=== PATIENT | male | born 1980 | race Caucasian/White ===

== ENCOUNTER 2016-06-20 10:17 | Emergency (ER) | payer MEDICAID ==
[2016-06-20 10:21] VITALS: BP 133/78; PULSE 100; RESP 16; TEMP 97.5; O2SAT 96
--- NOTE | 2016-06-20 11:27 | EDPHY ---
H & P Stated Complaint: mouth pain swelling in gums Time Seen by Provider: 06/20/16 11:13 HPI/ROS: CHIEF COMPLAINT: My gums hurt HISTORY OF PRESENT ILLNESS: 36-year-old immunocompetent male self-described history of poor dentition, gingival disease, complaining of 1 week of gingival pain. No visible swelling. No bleeding. No fever or chills. No trismus no drooling. No odynophagia. No dysphagia. PHYSICAL EXAM (Prior to examination, patient consented to physical exam, hands were washed and my usual and customary physical exam procedures followed) 1) GENERAL: Well-developed, well-nourished, alert and oriented. Appears to be in no acute distress. 2) HEAD: Normocephalic 3) HEENT: Symmetrical faces. Nasolabial fold symmetrical. sclera anicteric. No trismus no drooling. Patient's upper and lower gingiva are tender with no evidence of apical abscess. Floor of mouth is soft. There is no fetid odor. There is no evidence of acute necrotizing ulcerative gingivitis. The submandibular and sub mental spaces are soft no induration. No erythema. 4) LUNGS: Breathing comfortably. - Personal History Current Tetanus/Diphtheria Vaccine: Unsure Current Tetanus Diphtheria and Acellular Pertussis (TDAP): Unsure - Medical/Surgical History Hx Asthma: No Hx Chronic Respiratory Disease: No Hx Diabetes: No Hx Cardiac Disease: No Hx Renal Disease: No Hx Cirrhosis: No Hx Alcoholism: No Hx HIV/AIDS: No Hx Splenectomy or Spleen Trauma: No Other PMH: foot surgery for tendons. - Social History Smoking Status: Current every day smoker Constitutional: Initial Vital Signs Temperature (C) 36.4 C 06/20/16 10:19 Heart Rate 100 06/20/16 10:19 Respiratory Rate 16 06/20/16 10:19 Blood Pressure 133/78 H 06/20/16 10:19 O2 Sat (%) 96 06/20/16 10:19 O2 Delivery Mode Room Air Allergies/Adverse Reactions: No Known Allergies Allergy (Verified 03/17/16 16:39) Home Medications: Medication Instructions Recorded Terbinafine HCl [LamISIL AT Cream 1 santos TP BID #1 crtube 03/17/16 (*)] Amoxicillin Trihydrate 500 mg PO Q8 7 Days 06/20/16 [Amoxicillin 500mg cap] oxyCODONE/APAP 5/325 [Percocet 1 tab PO Q6 #7 tab 06/20/16 5/325] Medical Decision Making ED Course/Re-evaluation: I this patient has no evidence of acute necrotizing ulcerative gingivitis, no evidence of deep space infection or Omid's angina. I do not think that imaging studies are indicated. Plan will be discharged with antibiotics, analgesia. Recommend close follow-up with dentist in the next 1-3 days. Usual and customary ENT precautions provided. Departure - Departure Disposition: Home, Routine, Self-Care Clinical Impression: Gingivitis Condition: Good Instructions: Gingivitis (ED) Additional Instructions: Return to the ER immediately if you cannot swallow, have drooling, fevers, neck stiffness, cannot open your jaw, or any other symptoms that concern you. Referrals: [facility] [Outside] - As per Instructions [facility] [Outside] - As per Instructions [facility] [Outside] - As per Instructions [facility] [Outside] - As per Instructions [facility] [Outside] - As per Instructions Prescriptions: Amoxicillin Trihydrate [Amoxicillin 500mg cap] 500 mg PO Q8 7 Days oxyCODONE/APAP 5/325 [Percocet 5/325] 1 tab PO Q6 #7 tab
== END 2016-06-20 11:57 | disposition home or self-care (01) ==
DX: K05.10 Chronic gingivitis, plaque induced (principal); F17.200 Nicotine dependence, unspecified, uncomplicated

== ENCOUNTER 2016-08-02 18:45 | Emergency (ER) | payer MEDICAID ==
[2016-08-02 18:51] VITALS: BP 121/73; PULSE 89; RESP 17; TEMP 97; O2SAT 98
--- NOTE | 2016-08-02 19:08 | EDPHY ---
HPI/HX/ROS/PE/MDM Narrative: CHIEF COMPLAINT: "I fell on my knee 5 week ago" HPI: This is a 36 y/o male, with several previous ED visits for mouth and foot pain, complaining of intermittent knee pain he attributes to a fall 5 weeks ago. He states he "slipped on some beer and fell at a constitution party" several weeks ago. He reports he has been able to walk and run without any pain, but has discomfort if he kneels on his right knee. He states his knee "feels like Jello underneath it and, like, a crater." He denies other injuries or complaints. No weakness or paresthesias. REVIEW OF SYSTEMS: Aside from elements discussed in the HPI, a comprehensive 10-point review of systems was reviewed and is negative. PMH: Gingival disease, foot surgery SOCIAL HISTORY: Daily smoker PHYSICAL EXAM: General:Patient is alert, in no acute distress. Skin: Normal color. No rash. Warm and dry. No laceration, abrasion, or ecchymosis. No areas of redness, warmth, or streaking over right knee. Extremities: Normal appearance. Full range of motion. Small dime-shaped area of tenderness over right patella. Neuro: Oriented x3. Normal motor function. Normal sensory function. ED Course: Study: Right knee x-ray Indication: Pain Results: Knee x-ray was obtained. The results of the study are negative for acute process. Radiologist report pending. I viewed the images myself on the PACS system. I see no evidence for infection or abscess on exam. MDM: This patient presents with a very small area of tenderness over the anterior aspect of his patella after a fall approximately 5 weeks ago. His exam does not seem consistent with abscess or foreign body. I suspect this is likely scar tissue although early abscess cannot be excluded. Given lack of erythema or swelling, I do not think empiric antibiotics are indicated. I think the best course will be to continue to observe and to return if needed. X-rays are normal. General Time Seen by Provider: 08/02/16 18:59 Initial Vital Signs: Initial Vital Signs Temperature (C) 36.1 C 08/02/16 18:49 Heart Rate 89 08/02/16 18:49 Respiratory Rate 17 08/02/16 18:49 Blood Pressure 121/73 H 08/02/16 18:49 O2 Sat (%) 98 08/02/16 18:49 O2 Delivery Mode Room Air Allergies/Adverse Reactions: No Known Allergies Allergy (Verified 03/17/16 16:39) Home Medications: Medication Instructions Recorded Terbinafine HCl [LamISIL AT Cream 1 santos TP BID #1 crtube 03/17/16 (*)] Departure - Departure Disposition: Home, Routine, Self-Care Clinical Impression: Knee pain, right Condition: Good Instructions: Knee Pain (ED) Additional Instructions: 1. Take Tylenol or ibuprofen as directed on the packaging as needed for pain for the next 3-4 days. 2. You can try heat or ice on sore areas. 3. Follow up with a primary care provider for symptoms not improved over the next week. Referrals: [facility],. [Clinic] - As per Instructions Report Scribed for: Dave Quinones Report Scribed by: Ariana Cano Date of Report: 08/02/16 Time of Report: 19:13 Physician Review and Approval Statement: Portions of this note were transcribed by an ED scribe. I personally performed the history, physical exam, and medical decision making; and confirm the accuracy of the information in the transcribed note.
== END 2016-08-02 19:45 | disposition home or self-care (01) ==
DX: M25.561 Pain in right knee (principal); F17.200 Nicotine dependence, unspecified, uncomplicated

== ENCOUNTER 2017-05-25 09:35 | Emergency (ER) | payer MEDICAID ==
[2017-05-25 09:44] VITALS: BP 121/76; PULSE 78; RESP 16; TEMP 98.1; O2SAT 95
--- NOTE | 2017-05-25 10:23 | EDPHY ---
H & P Stated Complaint: l lateral neck stiffness and pain post waking this morning/ denies inj/traum HPI/ROS: CHIEF COMPLAINT: Neck pain HISTORY OF PRESENT ILLNESS: The patient is a 37 y/o male complaining of left-sided neck pain onset this morning upon waking. He notes he was lifting several boxes yesterday at the [facility] in [place], but didn't have any obvious injury, trauma, or pain at that time. He describes his pain as radiating up and down his spine. He denies weakness or numbness in his extremities, incontinence, fever, headache. He took 2 Aleve and 2 ibuprofen this morning and didn't have any relief over the next 4 hours so he came to the ED. He is concerned because he has to work for the next few days and his job will require lifting and bending. He is normally healthy. REVIEW OF SYSTEMS: A ten point review of systems was performed and is negative with the exception of the items mentioned in the HPI. Past medical history: Gingival disease Past surgical history: Foot surgery Family history: Noncontributory Social history: Employed. Lives in [place]. Nonsmoker. General Appearance: Alert. Vital signs reviewed. 1212/76. Eyes: Pupils equal and round, no conjunctival injection, no discharge. Anicteric. ENT, Mouth: Mucous membranes are moist, no oropharyngeal erythema or edema. Neck: No lymphadenopathy, supple. Left trapezius tenderness with spasm. Respiratory: Lungs are clear to auscultation; no wheezes, rales, or rhonchi. Cardiovascular: Regular rate and rhythm; no murmur, rub, or gallop. Gastrointestinal: Abdomen is soft and nontender, no masses or organomegaly. Skin: Warm and dry, no rashes on exposed skin, normal color. Back: Nontender to palpation over the thoracolumbar spine. No CVAT. Extremities: No lower extremity edema, no calf tenderness or swelling. Small subungual hematoma to left middle finger. Neurological: Alert and oriented. Moving all four extremities easily and equally. Facial expressions symmetric. Strength is 5 over 5 bilaterally with testing of all major motor groups in all four extremities. Sensation is intact to light touch over all 4 extremities. Deep tendon reflexes are 1+ in the biceps and 2+ knees and triceps bilaterally. Gait is normal. [id number] is performed accurately. Psychiatric: Normal affect. - Personal History Current Tetanus/Diphtheria Vaccine: Yes - Medical/Surgical History Hx Asthma: No Hx Chronic Respiratory Disease: No Hx Diabetes: No Hx Cardiac Disease: No Hx Renal Disease: No Hx Cirrhosis: No Hx Alcoholism: No Hx HIV/AIDS: No Hx Splenectomy or Spleen Trauma: No Other PMH: foot surgery for tendons. - Social History Smoking Status: Former smoker Constitutional: Initial Vital Signs Temperature (C) 36.7 C 05/25/17 09:40 Heart Rate 78 05/25/17 09:40 Respiratory Rate 16 05/25/17 09:40 Blood Pressure 121/76 H 05/25/17 09:40 O2 Sat (%) 95 05/25/17 09:40 O2 Delivery Mode Room Air Allergies/Adverse Reactions: No Known Allergies Allergy (Verified 05/25/17 09:40) Home Medications: Medication Instructions Recorded CYCLOBENZAPRINE HCL [Flexeril] 5 mg PO TIDPRN PRN #9 tab 05/25/17 Hydrocodone/APAP 5/325 [[place]ank 1 - 2 tab PO Q4 PRN #10 tab 05/25/17 5/325 (RX)] Lidocaine 5% [Lidoderm 5% Patch 1 ea TD DAILY #5 patch 05/25/17 (*)] Medical Decision Making ED Course/Re-evaluation: This is a 37 y/o male who presents with a few-hour history of left-sided neck pain after heavy lifting yesterday. He has a normal neurologic exam and intact reflexes. Some left trapezius tenderness and spasm noted on palpation. No midline tenderness nor indication for imaging. Recommended standard care and follow up for neck strain and trapezius spasm. He will receive scripts for B[place]ank , Flexeril, and lidocaine patches. Counseled proper NSAID use and gave narcotic cautions. He is comfortable with this plan. I considered a ddx that includes but is not limited to cervical sprain/strain, HNP/radiculopathy, central cord syndrome, cervical fracture, muscle spasm. - Data Points Medications Given: Discontinued Medications Lidocaine (Lidoderm 5%) 1 ea TD EDNOW ONE Stop: 05/25/17 11:20 Last Admin: 05/25/17 11:25 Dose: 1 ea Departure - Departure Disposition: Home, Routine, Self-Care Clinical Impression: Trapezius muscle spasm Neck strain Qualifiers: Encounter type: initial encounter Qualified Code(s): S16.1XXA - Strain of muscle, fascia and tendon at neck level, initial encounter Condition: Good Instructions: Hydrocodone/Acetaminophen (By mouth), Ibuprofen (By mouth), Cyclobenzaprine (By mouth), Lidocaine (On the skin), Cervical Strain (ED), Muscle Spasm (ED) Additional Instructions: 1. Take 600mg ibuprofen every 6-8 hours for pain and inflammation for the next few days. Do not combine this with Aleve (Naproxen); you can take one or the other. You can try applying a heating pad or cold pack to sore areas. 2. Apply lidocaine patches to sore areas. 3. Take B[place]ank as prescribed when needed for severe pain not controlled by ibuprofen or lidocaine. 4. Take Flexeril as prescribed for muscle spasm. This medication will make you drowsy and you should only take it at night prior to sleeping. 5. Do not using narcotics or muscle relaxants while driving or operating machinery. 6. Practice good lifting technique at all times. I recommend avoiding lifting anything heavy if possible until symptoms improve. 7. Follow up with your primary care provider for unimproved symptoms over the next week. Referrals: [facility],. [Clinic] - As per Instructions Prescriptions: CYCLOBENZAPRINE HCL [Flexeril] 5 mg PO TIDPRN PRN #9 tab PRN Reason: muscle spasm Hydrocodone/APAP 5/325 [[place]ank 5/325 (RX)] 1 - 2 tab PO Q4 PRN #10 tab PRN Reason: pain Lidocaine 5% [Lidoderm 5% Patch (*)] 1 ea TD DAILY #5 patch Report Scribed for: Paula Trotter Report Scribed by: Ariana Cano Date of Report: 05/25/17 Time of Report: 11:11 Physician Review and Approval Statement: 05/25/17 10:23 Portions of this note were transcribed by the medical advisor. I, Dr. Paula Trotter, personally performed the history, physical exam, and medical decision- making; and confirmed the accuracy of the information in the transcribed note.
[2017-05-25] MEDS ORDERED: LIDOCAINE 5% 1 EA PATCH TD ONE (11:19)
[2017-05-25] MEDS ORDERED: PATCH REMOVAL 1 EA PATCH TD SCH (21:00)
== END 2017-05-25 11:31 | disposition home or self-care (01) ==
DX: S16.1XXA Strain of muscle, fascia and tendon at neck level, initial encounter (principal); M62.838 Other muscle spasm; Z87.891 Personal history of nicotine dependence; X50.0XXA Overexertion from strenuous movement or load, initial encounter; Y99.8 Other external cause status; Y93.89 Activity, other specified

== ENCOUNTER 2017-09-04 17:02 | Emergency (ER) | payer MEDICAID ==
[2017-09-04 17:07] VITALS: BP 130/93
--- NOTE | 2017-09-04 17:12 | EDPHY ---
H & P Stated Complaint: R leg painx 2mo Time Seen by Provider: 09/04/17 17:11 HPI/ROS: HPI: This is a 37-year-old male who presents with Chief Complaint: R leg pain x 2mo Location: Right leg Quality: Pain Duration: 2 months Signs and Symptoms: No bleeding, no radiation, no numbness, no weakness, no tingling, no incontinence, no decreased range of motion, no swelling, no pain, no fever Timing: Daily, intermittent episodes Severity: 8/ Context: Patient presents with complaints of right posterior lower leg from knee to mid calf. Adverse he said over the last 2 months but after further questioning he explains has been going on for over year. He reports that the pain is increased when he snowboards for long periods of time. He reports that he snowboard is practically every day. He is right foot dominant. Reports that he had any injury last year. Followed up in this ER 08/02/2016 with x-ray that I reviewed personally that showed no acute fracture/significant degenerative changes. Patient reports since that time that the swelling has significantly decreased. He does feel some fullness in the posterior aspect of his knee. Patient reports he is ambulatory without any deficits. He reports he needs Percocet as he has a 10 day trip coming up that he will be snowboarding every day. Denies any chest pain/shortness of breath/ palpitations. Denies paresthesias/weakness/decreased range of motion/skin color changes/fever. Has tried Tylenol and ibuprofen with no relief. Modifying Factors: Lges-lyx-bptlekd pain medications with no relief Comment: ROS: see HPI Constitutional: No fever, no chills, no weight loss Eyes: No blurred vision Respiratory: No shortness of breath, no cough Cardiovascular: No chest pain Gastrointestinal: No nausea, no vomiting no diarrhea Genitourinary: No dysuria Extremities: No myalgias Neurologic: No weakness, no numbness Skin: No rashes Hematologic: No bruising, no bleeding MEDICAL/SURGICAL/SOCIAL HISTORY: Medical history: Depression takes Wellbutrin. 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 CONSTITUTIONAL: awake and alert, no obvious distress HEENT: Atraumatic and normocephalic. NECK: supple, no midline tenderness, flexion 45 degrees, extension 45 degrees, right and left lateral flexion 45 degrees. No meningismus. Cardiovascular: Normal S1/S2, regular rate, regular rhythm, without murmur rub or gallop. PULMONARY/CHEST: Symmetrical and nontender. no crepitus. Clear to auscultation bilaterally. Good air movement. No accessory muscle usage. ABDOMEN: Soft, nondistended, nontender, no ecchymosis. PELVIC: no pain with rocking; bilateral hips flexion 125 degrees, extension 30 degrees, with no pain internal rotation and no pain external rotation. BACK: No midline tenderness, no paraspinous spasm, deep tendon reflexes 2/2, no pain with straight leg raise, No foot drop. Achilles reflexes are equal bilaterally. Able to walk on heels and toes without difficulty. EXTREMITIES: 2/2 pulses, strength 5/5, right KNEE: no effusion, no medial and lateral joint line tenderness, full extension to 180, flexion to 120. No pain with varus and valgus exam. No pain with anterior drawer or posterior drawer test. Fullness noted in the posterior aspect-possibility of Taveras cyst. DIP/PIP/MCP flexion/extension intact with good light touch sensation. no deformities, no clubbing, no cyanosis or edema. Right calf is slightly larger than the left calf. Mild calf tenderness with palpation. No palpable cords. No varicose veins. NEUROLOGICAL: no focal neuro deficits. GCS 15. Light touch sensation intact. SKIN: Warm and dry, no erythema. no rash. Good capillary refill. Source: Patient Exam Limitations: No limitations - Personal History Current Tetanus/Diphtheria Vaccine: Yes Current Tetanus Diphtheria and Acellular Pertussis (TDAP): Yes - Medical/Surgical History Hx Asthma: No Hx Chronic Respiratory Disease: No Hx Diabetes: No Hx Cardiac Disease: No Hx Renal Disease: No Hx Cirrhosis: No Hx Alcoholism: No Hx HIV/AIDS: No Hx Splenectomy or Spleen Trauma: No Other PMH: foot surgery for tendons. - Social History Smoking Status: Former smoker Constitutional: Initial Vital Signs Temperature (C) 37.4 C 09/04/17 17:05 Heart Rate 80 09/04/17 17:05 Respiratory Rate 16 09/04/17 17:05 Blood Pressure 130/93 H 09/04/17 17:05 O2 Sat (%) 96 09/04/17 17:05 O2 Delivery Mode Room Air Allergies/Adverse Reactions: No Known Allergies Allergy (Verified 05/25/17 09:40) Home Medications: Medication Instructions Recorded Wellbutrin 100mg (*) 09/04/17 Medical Decision Making ED Course/Re-evaluation: No signs of neurovascular compromise/tenting of skin/compartment syndrome/ extremities and joints examined above and below area of concern and are neurovascularly intact/septic arthritis/gouty arthropathy. Injury and pain have been consistent for 2 months and then he later explains for over 1 year. Patient does not follow up with Orthopedics or primary care per prior recommendation. To shows multiple visits to the emergency room related to pain. Patient requesting Percocet prescription without any further imaging. Patient adamantly refused right lower extremity ultrasound to evaluate for deep venous thrombosis. MRI of his right knee for further evaluation for internal derangement. 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 Patient exhibiting drug-seeking behavior. This patient was seen under the supervision of my secondary supervising physician. I evaluated care for this patient independently. Discussed this patient with Dr. Madden who did not see the patient. Differential Diagnosis: Knee injury while [] including but not limited to fracture, ACL injury, contusion, muscular strain, and meniscus injury. Leg swelling including but not limited to hypoalbuminemia, congestive heart failure, cor pulmonale, chronic venous stasis and DVT. Departure - Departure Disposition: Against Medical Advice Clinical Impression: Chronic pain of right lower extremity Condition: Good Instructions: Chronic Pain (ED) Additional Instructions: I do not feel comfortable prescribing chronic pain medications without further evaluation with imaging. Please return to the emergency room at any time for further evaluation and for any new complaints that cause you concern. Establish primary care at [facility]. Return to the ER immediately if you experience new or worsening pain, discoloration, numbness, tingling, or any other symptoms that concern you. By leaving against medical advise you have verbalized complete understanding and acceptance of the risks associated with doing so, including, but not limited to, , chronic & permanent disability and impairment, and other circumstances and consequences too numerous to mention herein Referrals: [facility] [Outside] - As per Instructions
== END 2017-09-04 17:37 | disposition left against medical advice (07) ==
DX: M79.661 Pain in right lower leg (principal); G89.29 Other chronic pain; Z87.891 Personal history of nicotine dependence